=== PATIENT | male | born 1945 ===

== ENCOUNTER → 2025-01-18 | Outpatient (CLI) | payer OTHER ==
[~2025-01-18] VITALS: Ht 170.2 cm; Wt 97.5 kg
[~2025-01-18] MED LIST: ALDACTONE25 MG PO; AZOR 10-20 MG1 EACH; LIPITOR80 MG PO; METFORMIN HCL500 M3 PO; TOPROL XL25 M1 PO; ZESTRIL40 M1 PO
[2025-01-18 10:27] LABS: URINE APPEARANCE Clear; URINE BILIRRUBIN Negative (NEGATIVE); URINE BLOOD Negative; URINE COLOR Yellow; URINE GLUCOSE Negative (NEGATIVE); URINE KETONE Negative (NEGATIVE); URINE LEUKOCYTE Negative; URINE NITRATE Negative; URINE PROTEIN Negative (NEGATIVE); URINE UROBILINOGEN 0.2 E.U./dl
[2025-01-18 10:29] LABS: BASO % 1.2 % (0.1-1.2); EOS # 0.27 (0.04-0.54); EOS % 4.1 % (0.7-7.0); LYMPH # 1.57 (1.18-3.74); LYMPH % 23.9 % (19.3-53.1); MEAN PLATELET VOLUME 9.50 fl (9.4-12.4); MONO # 0.80 (0.24-0.82); NEUT # 3.84 (1.56-6.13); NEUT % 58.4 % (34.0-71.1); RED CELL DISTRIBUTION WIDTH 20.2 % (11.6-14.4)
[2025-01-18 10:32] LABS: MONO % 12.2 % (4.7-12.5)
[2025-01-18 10:32] LABS: URINE BACTERIA 5.9 uL (0.0-1933)
[2025-01-18 10:41] VITALS: BP 152/80
[2025-01-18 11:16] LABS: URINE CAST 0.00 uL (0.0-1.40); URINE EPITHELIAL CELLS 0.9 uL (0.0-38.8); URINE RBC 0.8 uL (0.0-20.8); URINE WBC 1.0 uL (0.0-23.2)
[2025-01-18 11:31] LABS: ALT/SGPT 21.0 U/L (12-78); AST/SGOT 12.0 U/L (15-37); BILIRUBIN TOTAL 0.59 mg/dL (0.3-1.2); BUN CREA RATIO 15.0 (7.0-25.0); CREATININE SERUM 1.35 mg/dL (0.70-1.30); GFR 51.11; GLOBULINA 3.1 G/DL (2.4-3.5); GLUCOSE FASTING 99.0 mg/dL (65-100); OSMOLALITY SERUM 282.0 MOSM/KG (275-295)
[2025-01-18 11:51] LABS: INR 1.01
== END | disposition home or self-care (01) ==
LOC: RAD 07:00 → EDSTATUS 01-25 10:00 → SURH 01-25 10:00
PROVIDERS: ATTEND Colon & Rectal Surgery
DX: C18.2 Malignant neoplasm of ascending colon (principal); Z85.038 Personal history of other malignant neoplasm of large intestine; I10 Essential (primary) hypertension